=== PATIENT | male | born 1990 | race Hispanic/Latino ===

== ENCOUNTER 2018-08-25 12:57 | Emergency (ER) | payer MEDICAID ==
[2018-08-25 13:49] LABS: CARBON DIOXIDE 24 mmol/L (21-32); CHLORIDE 103 mmol/L (101-111); CREATININE 0.9 mg/dL (0.5-1.5); GLOMERULAR FILTR. RATE CALC 108 mL/min (>60); GLUCOSE,RANDOM 134 mg/dL (70-105); POTASSIUM 3.5 mmol/L (3.5-5.1); SODIUM SERUM 139 mmol/L (136-145); UREA NITROGEN, BLOOD 16 mg/dL (7-18)
[2018-08-25 13:54] LABS: ALANINE AMINOTRANSFERASE 19 U/L (12-78); ALBUMIN 4.5 g/dL (3.5-5.0); ASPARTATE AMINOTRANSFERASE 14 U/L (10-37); BILIRUBIN,TOTAL 0.5 mg/dL (0.2-1.0); CREATINE KINASE, TOTAL 207 U/L (21-232); TOTAL PROTEIN, SERUM 8.7 g/dL (6.0-8.3)
[2018-08-25 13:55] LABS: APPEARANCE,URINE Cloudy (CLEAR); BILIRUBIN,URINE Negative (NEGATIVE); COLOR,URINE Yellow (YELLOW); GLUCOSE, URINE (UA) Negative (NEGATIVE); KETONES,URINE Trace mg/dL (NEGATIVE); LEUKOCYTE ESTERASE ,URINE Negative (NEGATIVE); NITRATE,URINE Negative (NEGATIVE); OCCULT BLOOD,URINE Negative (NEGATIVE); PROTEIN,URINE POS 1+ (NEGATIVE)
[2018-08-25 13:59] LABS: ALCOHOL, BLOOD < 3 mg/dL (0-10)
[2018-08-25 14:02] LABS: AMPHET/METH SCREEN,URINE NEGATIVE (NEGATIVE); BARBITURATE SCREEN, URINE NEGATIVE (NEGATIVE); BENZODIAZEPINES SCREEN,URINE POSITIVE (NEGATIVE); CANNABINOID SCREEN,URINE POSITIVE (NEGATIVE); COCAINE SCREEN,URINE NEGATIVE (NEGATIVE); OPIATE SCREEN,URINE NEGATIVE (NEGATIVE); PHENCYCLIDINE SCREEN,URINE NEGATIVE (NEGATIVE)
[2018-08-25 14:07] LABS: BASOPHILS % (AUTO) 0.5 % (0.0-5.0); HEMATOCRIT 45.2 % (42-54); LYMPHOCYTES % (AUTO) 5.3 % (21.0-51.0); MEAN CORPUSCULAR HEMOGLOBIN 29.9 pg (27.0-33.0); MEAN CORPUSCULAR HGB CONC 33.7 g/dL (32.0-36.0); MEAN CORPUSCULAR VOLUME 88.8 fL (79-99); NEUTROPHILS % (AUTO) 90.2 % (40.0-77.0); PLATELET COUNT (AUTO) 310 K/uL (130-400); RED BLOOD CELL COUNT(AUTO) 5.09 MIL/uL (4.50-6.20); RED CELL DISTRIBUTION WIDTH 14.5 % (11.0-15.5); WHITE BLOOD COUNT (AUTO) 19.3 K/uL (4.8-10.8)
[2018-08-25 14:12] LABS: BACTERIA,URINE Few /HPF (None Seen); RBC,URINE 0-1 /HPF (0-1)
[2018-08-25] MEDS ORDERED: SODIUM CHLORIDE 0.9% 1000ML 1,000 ML IV ONE (14:43)
== END 2018-08-25 17:13 | disposition home or self-care (01) ==
LOC: EDH 12:57
DX: G40.802 Other epilepsy, not intractable, without status epilepticus (principal); F12.90 Cannabis use, unspecified, uncomplicated
CPT/HCPCS: 36415; 70450; 80053; 80305; 81001; 82550; 85025; 93005; 99285; G0480; J7030